=== PATIENT | female | born 2000 | race African-American/Black ===

== ENCOUNTER 2022-10-24 10:44 | Emergency (ER) | payer OTHER ==
[~2022-10-24] VITALS: Ht 162.6 cm; Wt 88.2 kg
[2022-10-24] MEDS ORDERED: IRON1TAB2 PO (10:58)
[2022-10-24 11:53] LABS: HEMATOCRIT 39.7 % (36.0-47.0); HEMOGLOBIN 12.9 g/dl (12.0-15.5); MEAN CORPUSCULAR HEMOGLOBIN 28.7 pg (27.0-33.0); MEAN CORPUSCULAR HGB CONC 32.5 g/dl (32.0-36.5); MEAN CORPUSCULAR VOLUME 88.4 fl (80.0-96.0); PLATELET COUNT, AUTOMATED 468 10^3/uL (150-450); RED BLOOD COUNT 4.49 10^6/uL (4.00-5.40)
[2022-10-24 13:48] VITALS: BP 130/64
== END 2022-10-24 13:56 | disposition home or self-care (01) ==
LOC: M ED 11:50
DX: T83.32XA Displacement of intrauterine contraceptive device, initial encounter (principal); D64.9 Anemia, unspecified; F17.290 Nicotine dependence, other tobacco product, uncomplicated; Z88.6 Allergy status to analgesic agent; Z88.5 Allergy status to narcotic agent; Z91.040 Latex allergy status

== ENCOUNTER 2023-03-17 17:08 | Emergency (ER) | payer OTHER ==
[~2023-03-17] VITALS: Ht 162.6 cm; Wt 90.9 kg
[~2023-03-17 17:08] MED LIST: IRON1TAB2 PO
[2023-03-17 18:56] LABS: BASO % 0.3 % (0.0-1.0); EOS # 0.3 10^3/uL (0.0-0.5); EOS % 5.7 % (0.0-3.0); HEMATOCRIT 42.1 % (36.0-47.0); HEMOGLOBIN 13.8 g/dl (12.0-15.5); LYMPH # 1.8 10^3/uL (1.5-5.0); LYMPH % 31.1 % (24.0-44.0); MEAN CORPUSCULAR HEMOGLOBIN 28.6 pg (27.0-33.0); MEAN CORPUSCULAR HGB CONC 32.8 g/dl (32.0-36.5); MEAN CORPUSCULAR VOLUME 87.3 fl (80.0-96.0); MONO # 0.7 10^3/uL (0.0-0.8); MONO % 12.4 % (2.0-8.0); NEUTROPHILS # 2.9 10^3/uL (1.5-8.5); NEUTROPHILS % 50.3 % (36.0-66.0); PLATELET COUNT, AUTOMATED 466 10^3/uL (150-450); RED BLOOD COUNT 4.82 10^6/uL (4.00-5.40); WHITE BLOOD COUNT 5.8 10^3/uL (4.0-10.0)
[2023-03-17 20:27] LABS: GC DNA AMPLIFICATION NEGATIVE (NEGATIVE)
[2023-03-17 21:25] VITALS: BP 129/60; TEMP 98; O2SAT 99
== END 2023-03-17 21:29 | disposition home or self-care (01) ==
LOC: M ED 17:08
DX: N94.10 Unspecified dyspareunia (principal); F17.200 Nicotine dependence, unspecified, uncomplicated; Z88.5 Allergy status to narcotic agent; Z88.6 Allergy status to analgesic agent; Z91.040 Latex allergy status

== ENCOUNTER 2023-04-23 10:55 | Emergency (ER) | payer OTHER ==
[~2023-04-23] VITALS: Ht 162.6 cm; Wt 93.7 kg
[2023-04-23] MEDS ORDERED: NS 1,000 ML IV ONE (12:25)
[2023-04-23] MEDS ORDERED: METOCLOPRAMIDE INJ 10MG/2ML VIAL IV ONE (12:25)
[2023-04-23 12:31] LABS: BASO % 0.4 % (0.0-1.0); EOS # 0.2 10^3/uL (0.0-0.5); EOS % 4.2 % (0.0-3.0); HEMATOCRIT 43.1 % (36.0-47.0); LYMPH % 38.6 % (24.0-44.0); MEAN CORPUSCULAR HEMOGLOBIN 28.9 pg (27.0-33.0); MEAN CORPUSCULAR HGB CONC 32.5 g/dl (32.0-36.5); MONO # 0.4 10^3/uL (0.0-0.8); MONO % 7.8 % (2.0-8.0); NEUTROPHILS # 2.6 10^3/uL (1.5-8.5); NEUTROPHILS % 48.8 % (36.0-66.0); PLATELET COUNT, AUTOMATED 421 10^3/uL (150-450); RED BLOOD COUNT 4.84 10^6/uL (4.00-5.40); WHITE BLOOD COUNT 5.2 10^3/uL (4.0-10.0)
[2023-04-23] MEDS ORDERED: ACETAMINOPHEN 500 MG TAB PO ONE (12:35)
[2023-04-23 12:45] LABS: INR 0.96; PROTHROMBIN TIME 12.5 SECONDS (12.5-14.5)
[2023-04-23 12:46] LABS: PARTIAL THROMBOPLASTIN TIME 29.1 SECONDS (24.8-34.2)
[2023-04-23 13:00] LABS: CK-MB VALUE MASS < 1.0 NG/ML (<3.6)
[2023-04-23 13:01] LABS: CPK CREATINE PHOSPHOKINASE 221 U/L (34-145); MB/CK RELATIVE INDEX 0.45 (< OR =4)
[2023-04-23 13:32] LABS: RSV AMPLIFICATION NEGATIVE (NEGATIVE)
[2023-04-23 16:15] VITALS: BP 101/56
[2023-04-23 16:20] VITALS: TEMP 97.6; O2SAT 100
== END 2023-04-23 16:40 | disposition home or self-care (01) ==
LOC: M ED 10:55
DX: G43.909 Migraine, unspecified, not intractable, without status migrainosus (principal); Z88.5 Allergy status to narcotic agent; Z91.040 Latex allergy status
CPT/HCPCS: 70450; 70551; 80047; 82550; 82553; 84484; 84702; 85025; 85610; 85730; 87631; 93005; 93041; 94760; 96361; 96374; 99285; J2765

== ENCOUNTER → 2023-05-10 | Outpatient (CLI) | payer OTHER | LOC: M LAB 16:30 | PROVIDERS: ATTEND Advanced Practice Midwife | DX: O36.80X0 Pregnancy with inconclusive fetal viability, not applicable or unspecified (principal) ==

== ENCOUNTER 2023-12-17 03:05 | Outpatient (CLI) | payer OTHER ==
[~2023-12-17] VITALS: Ht 162.6 cm; Wt 100.0 kg
[2023-12-17 03:30] VITALS: BP 112/51
[2023-12-17] MEDS ORDERED: PRENTAB9 PO (03:32)
[2023-12-17] MEDS ORDERED: HOME MED LIST COMPLETE! XX SCH (03:35)
[2023-12-17 06:24] VITALS: BP 97/49
[2023-12-17 06:59] VITALS: BP 123/56; O2SAT 99
== END 2023-12-17 07:29 | disposition home or self-care (01) ==
LOC: M LDO 03:05
PROVIDERS: ATTEND Advanced Practice Midwife
DX: O47.03 False labor before 37 completed weeks of gestation, third trimester (principal); Z3A.36 36 weeks gestation of pregnancy
CPT/HCPCS: 59025; 87081; G0463

== ENCOUNTER 2023-12-29 11:17 | Inpatient (IN) | payer OTHER ==
[~2023-12-29] VITALS: Ht 162.6 cm; Wt 100.9 kg
[2023-12-29] VITALS (21 sets, daily range): BP systolic 101–133; BP diastolic 50–74; O2SAT 98
[~2023-12-29 11:17] MED LIST changes: +PRENTAB9 PO
[2023-12-29] MEDS ORDERED: HOME MED LIST COMPLETE! XX SCH (11:45)
[2023-12-29] MEDS ORDERED: OXYTOCIN DRIP 30 UNITS in IV 1 EA IV PRN (12:55)
[2023-12-29] MEDS ORDERED: CARBOPROST TROMETHAMINE 250 MCG/ML AMP IM PRN (12:55)
[2023-12-29] MEDS ORDERED: METHYLERGONOVINE MALEATE 0.2MG/ML 1ML VIAL IM PRN (12:55)
[2023-12-29] MEDS ORDERED: TRANEXAMIC ACID INJection 1,000 MG in NS 100 ML IV PRN (12:55)
[2023-12-29] MEDS: OXYTOCIN DRIP 30 UNITS in IV 1 EA IV SCH (14:09)
[2023-12-29] MEDS: LR 1,000 ML IV SCH (14:09)
[2023-12-29 14:22] LABS: HEMATOCRIT 33.2 % (36.0-47.0); HEMOGLOBIN 10.2 g/dl (12.0-15.5); MEAN CORPUSCULAR HEMOGLOBIN 24.6 pg (27.0-33.0); MEAN CORPUSCULAR HGB CONC 30.7 g/dl (32.0-36.5); PLATELET COUNT, AUTOMATED 431 10^3/uL (150-450); RED BLOOD COUNT 4.15 10^6/uL (4.00-5.40)
[2023-12-29] MEDS: LACTATED RINGER'S 1000 ML IV PRN (15:08)
[2023-12-29] MEDS ORDERED: NALOXONE INJ 0.4MG/1ML VIAL IV PRN (15:50)
[2023-12-29] MEDS ORDERED: EPIDURAL/PCA KEYS XX PRN (15:50)
[2023-12-29] MEDS ORDERED: LR 500 ML IV PRN (15:50)
[2023-12-29] MEDS ORDERED: ePHEDrine SULFATE 25 MG/5 ML(5MG/ML) SYRINGE IVP PRN (15:50)
[2023-12-29] MEDS ORDERED: ONDANSETRON 4MG 2ML VIAL IV PRN (15:50)
[2023-12-29] MEDS ORDERED: diphenhydrAMINE 50MG/ML VIAL IV PRN (15:50)
[2023-12-29] MEDS: FENTANYL/ROPIVACAINE/NACL BAG 100 ML EPIDURAL SCH (16:27)
[2023-12-29 16:33] LABS: HEPATITIS C VIRUS ABY INDEX < 0.02 INDEX (<0.8)
[2023-12-29] MEDS ORDERED: METHYLERGONOVINE MALEATE 0.2 MG TAB PO PRN (18:20)
[2023-12-29] MEDS ORDERED: DOCUSATE SODIUM 100MG CAPSULE PO PRN (18:20)
[2023-12-29] MEDS: ACETAMINOPHEN 500 MG TAB PO PRN (21:18)
[2023-12-30] MEDS: IBUPROFEN 600MG TAB PO PRN (05:44)
[2023-12-30 06:00] VITALS: BP 109/58; O2SAT 99
[2023-12-30 06:19] LABS: HEMATOCRIT 31.3 % (36.0-47.0); MEAN CORPUSCULAR HEMOGLOBIN 25.3 pg (27.0-33.0); MEAN CORPUSCULAR HGB CONC 31.9 g/dl (32.0-36.5); MEAN CORPUSCULAR VOLUME 79.2 fl (80.0-96.0); PLATELET COUNT, AUTOMATED 365 10^3/uL (150-450); RED BLOOD COUNT 3.95 10^6/uL (4.00-5.40); WHITE BLOOD COUNT 9.4 10^3/uL (4.0-10.0)
[2023-12-30] MEDS: PRENATAL VITAMINS CHEWABLE TABLET PO SCH (08:01)
[2023-12-30] MEDS: DIBUCAINE 1% OINTMENT 30GM TOP PRN (08:02)
[2023-12-30] MEDS: RHO(D) IMMUNE GLOBULIN/MALTOSE 500MCG(2500IU)/2.2ML VIAL (WINRHO) IM SCH (11:17)
[2023-12-31] MEDS ORDERED: MEASLES,MUMPS,RUBELLA VACCINE INJ (MMR-II) SC.IMMUN ONE (09:00)
== END 2023-12-30 12:48 | disposition home or self-care (01) | DRG 807 ==
LOC: M LDO 11:17 → M LDI 12:44 → M OBS 20:47
PROVIDERS: ADMIT Obstetrics & Gynecology; ATTEND Obstetrics & Gynecology
PROC: 10D17Z9 Manual Extraction of Products of Conception, Retained, Via Natural or Artificial Opening (ICD-10-PCS; principal; 2023-12-29)
PROC: 10E0XZZ Delivery of Products of Conception, External Approach (ICD-10-PCS; 2023-12-29)
DX: O42.02 Full-term premature rupture of membranes, onset of labor within 24 hours of rupture (principal); Z37.0 Single live birth; Z3A.37 37 weeks gestation of pregnancy; O69.81X0 Labor and delivery complicated by cord around neck, without compression, not applicable or unspecified; O73.1 Retained portions of placenta and membranes, without hemorrhage

== ENCOUNTER 2024-09-03 16:15 | Emergency (ER) | payer OTHER ==
[~2024-09-03] VITALS: Ht 162.6 cm; Wt 97.2 kg
[2024-09-03 19:17] LABS: BASO % 0.5 % (0.0-1.0); EOS # 0.2 10^3/uL (0.0-0.5); EOS % 4.4 % (0.0-3.0); HEMATOCRIT 39.8 % (36.0-47.0); HEMOGLOBIN 13.1 g/dl (12.0-15.5); LYMPH # 1.9 10^3/uL (1.5-5.0); MEAN CORPUSCULAR HEMOGLOBIN 28.5 pg (27.0-33.0); MEAN CORPUSCULAR HGB CONC 32.9 g/dl (32.0-36.5); MEAN CORPUSCULAR VOLUME 86.7 fl (80.0-96.0); MONO # 0.4 10^3/uL (0.0-0.8); MONO % 9.7 % (2.0-8.0); NEUTROPHILS # 1.6 10^3/uL (1.5-8.5); NEUTROPHILS % 38.4 % (36.0-66.0); PLATELET COUNT, AUTOMATED 394 10^3/uL (150-450); RED BLOOD COUNT 4.59 10^6/uL (4.00-5.40); WHITE BLOOD COUNT 4.1 10^3/uL (4.0-10.0)
[2024-09-03 19:22] LABS: ERYTHROCYTE SEDIMENTATION RATE 10 mm/hr (0-20)
[2024-09-03 19:41] LABS: BLOOD UREA NITROGEN 9 MG/DL (9-23); C REACTIVE PROTEIN QUANTITATIV < 0.50 MG/DL (<1.0); CALCIUM LEVEL 9.8 MG/DL (8.5-10.1); CARBON DIOXIDE LEVEL 28 MMOL/L (20-31); CHLORIDE LEVEL 106 MMOL/L (98-107); CREATININE FOR GFR 0.81 MG/DL (0.55-1.30); GLOMERULAR FILTRATION RATE > 60.0 (>60); GLUCOSE, FASTING 82 MG/DL (60-100); HCG, SERUM QUANTITATIVE < 2.6 MIU/ML (<4.2); POTASSIUM SERUM 4.7 MMOL/L (3.5-5.1); SODIUM LEVEL 141 MMOL/L (136-145)
[2024-09-03] MEDS: KETOROLAC 30 MG/ML 1ML VIAL IV ONE (20:04)
[2024-09-03] MEDS ORDERED: ISOVUE-370 76% 100ML VIAL As Ordered ONE (21:04)
[2024-09-03] MEDS ORDERED: IBUP80TA PO (22:17)
[2024-09-03 22:27] VITALS: BP 110/80; TEMP 98; O2SAT 99
== END 2024-09-03 22:30 | disposition home or self-care (01) ==
LOC: M ED 16:15
DX: K08.89 Other specified disorders of teeth and supporting structures (principal); F17.210 Nicotine dependence, cigarettes, uncomplicated; Z88.5 Allergy status to narcotic agent; Z91.040 Latex allergy status; Z79.1 Long term (current) use of non-steroidal anti-inflammatories (NSAID)
CPT/HCPCS: 70491; 80048; 84702; 85025; 85652; 86140; 96374; 99284; J1885; Q9967

== ENCOUNTER → 2025-07-17 | Outpatient (CLI) | payer OTHER ==
[~2025-07-17] MED LIST changes: +IBUP80TA PO
== END ==
LOC: M WHC 09:25
PROVIDERS: ATTEND Internal Medicine
DX: N64.4 Mastodynia (principal)